=== PATIENT | male | born 1950 | race Caucasian/White ===

== ENCOUNTER → 2018-05-01 09:13 | Outpatient (CLI) | payer MEDICARE, OTHER, SELFPAY ==
--- NOTE | 2018-05-01 09:19 | DI.MRI.S_ITS ---
PROCEDURE: MR BRAIN (IAC) WWO CON INDICATIONS: HEARING LOSS TECHNIQUE: Noncontrast sagittal T1 spin echo, axial FLAIR, axial gradient echo, axial diffusion and ADC through the brain. Axial thin-slice 3D CISS, coronal TruFISP, axial T1 spin echo with fat saturation through the internal auditory canals. After the administration of contrast, thin slice axial and coronal T1 spin echo with fat saturation through the internal auditory canals, and axial T1 spin echo with fat saturation through the brain. COMPARISON: None. FINDINGS: Image quality: Excellent. Cerebellopontine angles: No cerebellopontine angle masses. Inner ear structures appear normally formed. No suspicious enhancement in the internal auditory canal or along the course of the 7th cranial nerve. CSF spaces: Ventricles are normal in size and shape. No extra-axial fluid collections. Basal cisterns are patent. Brain: No intracranial bleeds or mass effects. Wood-white matter interface is intact. There is mild, diffuse cerebral volume loss. No abnormal intracranial enhancement. Diffusion weighted images demonstrate no acute ischemic insults. Brainstem appears normal. Normal intravascular flow voids are present. Skull and face: Calvarial marrow signal is normal. Orbits appear normal. Sinuses: Sinuses and mastoids are clear. IMPRESSION: 1. No evidence of vestibular schwannoma. 2. No acute intracranial disease process. Dictated by: Beatris Rush MD, PhD on 05/01/2018 at 17:08 Approved by: Beatris Rush MD, PhD on 05/01/2018 at 17:11
[2018-05-01 09:49] LABS: Estimated Glomerular Filt Rate > 60.0 mL/min (>60)
== END ==
PROVIDERS: Visit Provider Otolaryngology
DX: H90.5 Unspecified sensorineural hearing loss (principal); H93.13 Tinnitus, bilateral
CPT/HCPCS: 36415; 70553; 82565; 84295

== ENCOUNTER 2020-07-22 22:36 | Emergency (ER) | payer MEDICARE, OTHER, SELFPAY ==
[2020-07-22 22:47] VITALS: BP 141/73; PULSE 93; RESP 20; TEMP 37.9; O2SAT 98
--- NOTE | 2020-07-22 22:47 | DI.RAD.S_ITS ---
PROCEDURE: XR CHEST 1V INDICATIONS: Fever and shortness of breath TECHNIQUE: One view of the chest was acquired. COMPARISON: None. FINDINGS: Surgical changes and devices: None. Lungs and pleura: Lungs are clear. No pleural effusions or pneumothorax. Mediastinum: Mediastinal contours appear normal. Heart size is normal. Bones and chest wall: No suspicious bony lesions. Overlying soft tissues appear unremarkable. IMPRESSION: No acute disease. Dictated by: Lefty Zamorano M.D. on 07/23/2020 at 8:22 Approved by: Lefty Zamorano M.D. on 07/23/2020 at 8:25
[2020-07-22 23:13] LABS: COVID19 -Nasal RAPID Negative (Negative)
--- NOTE | 2020-07-22 23:28 | ED_ITS ---
HPI - General Adult General Chief complaint: Upper Respiratory Symptoms Stated complaint: lost sense of taste on monday Time Seen by Provider: 07/22/20 22:43 Source: patient Mode of arrival: Ambulatory Limitations: no limitations History of Present Illness HPI narrative: 69-year-old male here for the evaluation of loss of sense of taste and also right rib pain. Patient states that approximately 10 days ago he was elk hunting and tripped over a long landing on his right side. He did not hit his head. There was no loss of consciousness. Since that time he has had some discomfort on the right side of his ribs but no problems breathing. He is also here for approximately 3 days of a loss of sense of taste. He does work in a retail setting however states that he maintain social distance things much as possible and also wears his mask. He denies any other known code exposures. Denies any fevers. Denies any problems breathing or coughing. No nausea or vomiting. Related Data Allergies Allergy/AdvReac Type Severity Reaction Status Date / Time hydroxyzine [From Atarax] Allergy Verified 07/22/20 22:49 Review of Systems Constitutional Constitutional: Denies fever(s) and Denies headache(s) ENT Ears, Nose, Mouth, and Throat: Denies headache(s) Comments: Loss of sense of taste Cardiovascular Cardiovascular: Denies dyspnea Respiratory Respiratory: Denies cough and Denies dyspnea Gastrointestinal Gastrointestinal: Denies nausea and Denies vomiting Integumentary/Breasts Skin/Breast: Denies rash Neurologic Neurologic: Denies behavioral changes and Denies headache(s) Psychiatric Psychiatric: Denies behavioral changes Hematologic/Lymphatic Hematologic/Lymphatic: Denies easy bleeding and Denies easy bruising Patient History Medical History Healthy adult (Acute) Social History lives independently: Yes Exam Initial Vital Signs Initial Vital Signs: Vital Signs Temperature 100.2 F H 07/22/20 22:47 Pulse Rate 93 H 07/22/20 22:47 Respiratory Rate 20 07/22/20 22:47 Blood Pressure 141/73 H 07/22/20 22:47 Pulse Oximetry 98 07/22/20 22:47 Const General: cooperative and comfortable Limitations: mental status not altered HENAR Head: normal to inspection and normocephalic Resp Effort & Inspection: normal respiratory effort Cardio Rate: regular rate Neuro General: patient alert, patient awake and patient oriented x3 Cognition: normal cognition Speech: speech normal Extrem General: normal to inspection Psych Appearance: grossly normal and well kempt Course Orders Ordered: ED Orders 07/22/20 22:47 XR chest 1V Stat 07/22/20 22:55 COVID19 -ED/INPAT/OR/L&D Stat Vital Signs Vital signs: Vital Signs - 8 hr 07/22/20 22:47 07/22/20 23:44 Temperature 100.2 F H 100.1 F H Pulse Rate 93 H 87 Respiratory Rate 20 20 Blood Pressure 141/73 H 137/71 Pulse Oximetry 98 98 Medical Decision Making Lab Data Lab results reviewed: Yes I reviewed the patient's lab results. Labs: Lab Results 07/22/20 Range/Units 22:55 COVID-19 PCR Negative (Negative) Imaging Data Chest x-ray: Attestation: I personally reviewed and interpreted this imaging study as follows: My Impression: No pneumonia, no pneumothorax, no obvious rib fractures MDM Narrative Medical decision making narrative: Patient without respiratory distress. Chest x-ray is unremarkable. Not hypoxic. His COVID-19 test is positive. Had a long discussion with him regarding this. In his only min 2-3 days since he lost his sense of taste. This is a known symptom of COVID-19. We did discuss that potentially today's testing his too early in the course of his symptoms/infection rim to pop positive. Did inform him that his still having symptoms at 7-10 days that he should consider getting retested. He was informed to self quarantine until his symptoms have resolved. No indication for antibiotics. We can hold on further workup for now. He expressed understanding and agreement. Discharge Plan Departure Patient Disposition: Home Clinical Impression: Rib pain, Loss of perception for taste Discharge Date/Time: 07/22/20 23:45 Instructions: Coronavirus Disease 2019 Activity Restrictions/Additional Instructions: The loss of taste is certainly a known symptom of coronavirus. You did test negative today however like we discussed the medical community is unsure as to how long it will take between and exposure and having a positive test. I do recommend that you self quarantine until your symptoms have resolved. I also r ecommend that if you have not had a resolution of her symptoms in the next couple days that you do get retested. You can contact our respiratory Clinic for this. Return to the emergency department for any new or worsening symptoms
[2020-07-22 23:44] VITALS: BP 137/71; PULSE 87; RESP 20; TEMP 37.8; O2SAT 98
== END 2020-07-22 23:45 | disposition home or self-care (01) ==
PROVIDERS: Emergency Provider Emergency Medicine
DX: U07.1 COVID-19 (principal); R07.81 Pleurodynia; W19.XXXA Unspecified fall, initial encounter; R48.1 Agnosia; R50.9 Fever, unspecified; R06.02 Shortness of breath
CPT/HCPCS: 71045; 87635; 99281; 99283

== ENCOUNTER 2022-03-08 11:48 | Emergency (ER) | payer MEDICARE, OTHER, SELFPAY ==
[2022-03-08] VITALS (10 sets, daily range): BP systolic 108–143; BP diastolic 65–78; PULSE 63–79; RESP 16–18; TEMP 36.6; O2SAT 97–100; BMI 23.0
[2022-03-08 12:56] LABS: Bacteria Urine Few (2-10); Culture Indicated Urine Specimen Cultured; RBC Urine 1-5/HPF (0-5/HPF); WBC Urine 5-10/HPF (0-5/HPF)
[2022-03-08 14:08] LABS: Add Manual Diff / Slide Review NO; Basophils Absolute Auto 0 /uL (0-100); Basophils Percent Auto 0.6 % (0-2); Eosinophils Absolute Auto 0 /uL (0-450); Eosinophils Percent Auto 0.5 % (2-4); Hematocrit 41.3 % (41-53); Hemoglobin 14.1 g/dL (13.5-17.5); Lymphocytes Absolute Auto 1100 /uL (1100-4500); Lymphocytes Percent Auto 15.1 % (25-40); Mean Corpuscular HGB Conc 34.2 % (30-36); Mean Corpuscular Hemoglobin 30.2 PG (26-34); Mean Corpuscular Volume 88.2 fL (80-100); Monocytes Absolute Auto 600 /uL (0-900); Monocytes Percent Auto 7.8 % (3-14); Neutrophils Absolute Auto 5700 /uL (1500-7000); Platelet Count 200 X10^3/uL (150-400); Red Blood Cell Count 4.68 X10^6/uL (4.5-5.9); Red Cell Distribution Width 13.7 % (11.6-14.8); White Blood Cell Count 7.5 X10^3/uL (4.5-11.0)
[2022-03-08 14:23] LABS: Alanine Aminotransferase 18 IU/L (<50); Albumin 4.2 g/dL (3.5-5.0); Albumin Globulin Ratio 1.6 (1.0-2.8); Alkaline Phosphatase 70 U/L (38-126); Aspartate Aminotransferase 25 IU/L (17-59); BUN Creatinine Ratio 17.6 (6-22); Bilirubin Total 0.9 mg/dL (0.2-1.3); Blood Urea Nitrogen 16 mg/dL (9-20); Calcium 9.3 mg/dL (8.4-10.2); Carbon Dioxide 28 mmol/L (22-32); Chloride 105 mmol/L (98-107); Estimated Glomerular Filt Rate > 60 mL/min (>60); Globulin 2.7 g/dL (1.7-4.1); Glucose 118 mg/dL (80-110); HEMOLYSIS < 15 (0-50); Lipase 43 U/L (23-300); Potassium 4.4 mmol/L (3.4-5.1); Sodium 138 mmol/L (137-145); Total Protein 6.9 g/dL (6.3-8.2)
--- NOTE | 2022-03-08 15:36 | ED_ITS ---
HPI - Abdominal Pain General Chief Complaint: Abdominal Pain Stated Complaint: Severe ABD pain lower left Time Seen by Provider: 03/08/22 15:35 Source: patient Mode of arrival: Ambulatory History of Present Illness HPI narrative: 71M nonsmoker with nonsignificant medical history presents with his son in the chief complaint of gradually worsening episodes of left lower quadrant pain with some radiation around his left side. He states the symptoms came on rather suddenly and largely have no obvious provocation or palliation. He has had a few episodes of nausea and vomiting which seem to be related to increased intensity in pain. He denies dizziness, weakness or lightheadedness. He denies any fever or chills. He denies chest pain or shortness of breath. He has no change in bowel habits such as constipation or diarrhea. He denies any obvious dysuria, frequency or urgency Related Data Previous Rx's Medication Instructions Recorded cephalexin 500 mg capsule 500 mg PO BID 7 Days #14 cap 03/08/22 hydrocodone 5 mg-acetaminophen 325 1 tab PO Q4-6H PRN #10 tab 03/08/22 mg tablet ketorolac 10 mg tablet 10 mg PO Q6H PRN #14 tab 03/08/22 ondansetron 4 mg disintegrating 4 mg PO TID-QID PRN #10 tab 03/08/22 tablet tamsulosin 0.4 mg capsule (Flomax) 0.4 mg PO DAILY #30 cap 03/08/22 Allergies Allergy/AdvReac Type Severity Reaction Status Date / Time hydroxyzine [From Atarax] Allergy Verified 03/08/22 12:22 Review of Systems Review of Systems Narrative: GENERAL: Denies chills, fatigue, malaise, fever, sweats. HEENT: Denies sinus pain, ear pain, sore throat, difficulty swallowing, dizziness. RESPIRATORY: Denies dyspnea, cough, wheezing, hemoptysis, sputum. CARDIOVASCULAR: Denies chest pain, palpitations, orthopnea, edema, GASTROINTESTINAL: See HPI : Denies dysuria, frequency, incontinence, hematuria, urinary retention. MUSCULOSKELETAL: See HPI SKIN: Denies rash, skin lesions, or other NEUROLOGIC: Denies weakness, headache, numbness, change in speech, confusion, seizures, incoordination. PSYCHIATRIC: No concerning psychosocial issues. 12 point review of systems is negative except for those stated above Patient History Medical History Healthy adult Social History lives independently: Yes Smoking Status: Unknown if ever smoked Smoking Status: Unknown if ever smoked alcohol intake frequency: holidays/special occasions only Substance Use Type: does not use Exam Narrative Exam Narrative: GENERAL: [71] year old patient appears stated age. Well-developed patient, in no obvious distress HEAD: Atraumatic. Normocephalic. EYES: Pupils equal round and reactive. Extraocular motions intact. No scleral icterus. No injection or drainage. ENT: Nose without bleeding, purulent drainage. Throat without erythema, tonsillar hypertrophy or exudate. Airway patent. NECK: Trachea midline. Non tender CARDIOVASCULAR: Regular rate and rhythm without murmurs, gallops, or rubs. RESPIRATORY: Clear to auscultation. Breath sounds equal bilaterally. No wheezes, rales, or rhonchi. GASTROINTESTINAL: Abdomen soft, minimal left lower quadrant tenderness, nondistended. EXTREMITIES: No edema or joint tenderness. BACK: Nontender without deformity or crepitance. Left flank tender to palpate NEURO: AOx3. SKIN: No rash or erythema of visible areas Initial Vital Signs Initial Vital Signs: Vital Signs Temperature 97.8 F 03/08/22 12:22 Pulse Rate 75 03/08/22 12:22 Respiratory Rate 16 03/08/22 12:22 Blood Pressure 143/78 H 03/08/22 12:22 Pulse Oximetry 99 03/08/22 12:22 Course Orders Ordered: Discontinued Medications Ceftriaxone Sodium 2,000 mg/ (Sodium Chloride) 100 mls @ 200 mls/hr IV NOW ONE Stop: 03/08/22 18:14 Last Infusion: 03/08/22 19:05 Dose: 0 mls/hr Documented by: Admin: 03/08/22 18:22 Dose: 200 mls/hr Documented by: NRHOADS Consultations Consultation #1: Discussed with on-call Urology, given elevated leukocytes and mild elevation and wbc's in urine. Given lack of fever, UTI symptoms, or elevated white blood cell count Dr Suh (urology ) suggest this is most likely an inflammatory response due to the passage of a kidney stone as opposed to UTI in the presence of a kidney stone. He recommends typical kidney stone treatment, plus or minus antibiotics with strict return precautions and close follow-up Vital Signs Vital signs: Vital Signs - 8 hr 03/08/22 12:22 03/08/22 15:28 03/08/22 16:42 Temperature 97.8 F Pulse Rate 75 79 69 Respiratory Rate 16 18 Blood Pressure 143/78 H 112/73 Pulse Oximetry 99 98 99 03/08/22 16:46 Temperature Pulse Rate 69 Respiratory Rate Blood Pressure 125/76 Pulse Oximetry 99 MDM - Abdominal Pain Lab Data Result diagrams: 03/08/22 14:00 03/08/22 14:00 Labs: Lab Results 03/08/22 03/08/22 03/08/22 Range/Units 12:45 14:00 14:00 WBC 7.5 (4.5-11.0) X10^3/uL RBC 4.68 (4.5-5.9) X10^6/uL Hgb 14.1 (13.5-17.5) g/dL Hct 41.3 (41-53) % MCV 88.2 (80-100) fL MCH 30.2 (26-34) PG MCHC 34.2 (30-36) % RDW 13.7 (11.6-14.8) % Plt Count 200 (150-400) X10^3/uL Neut % (Auto) 76.0 H (50-75) % Lymph % (Auto) 15.1 L (25-40) % [place]ole % (Auto) 7.8 (3-14) % Eos % (Auto) 0.5 L (2-4) % Baso % (Auto) 0.6 (0-2) % Neut # (Auto) 5700 (1832-9156) /uL Lymph # (Auto) 1100 (8673-9992) /uL [place]ole # (Auto) 600 (0-900) /uL Eos # (Auto) 0 (0-450) /uL Baso # (Auto) 0 (0-100) /uL Sodium 138 (137-145) mmol/L Potassium 4.4 (3.4-5.1) mmol/L Chloride 105 (98-107) mmol/L Carbon Dioxide 28 (22-32) mmol/L BUN 16 (9-20) mg/dL Creatinine 0.91 (0.66-1.25) mg/dL Estimated GFR > 60 (>60) mL/min BUN/Creatinine Ratio 17.6 (6-22) Glucose 118 H (80-110) mg/dL Calcium 9.3 (8.4-10.2) mg/dL Total Bilirubin 0.9 (0.2-1.3) mg/dL AST 25 (17-59) IU/L ALT 18 (<50) IU/L Alkaline Phosphatase 70 (38-126) U/L Total Protein 6.9 (6.3-8.2) g/dL Albumin 4.2 (3.5-5.0) g/dL Globulin 2.7 (1.7-4.1) g/dL Albumin/Globulin Ratio 1.6 (1.0-2.8) Lipase 43 (23-300) U/L Urine RBC 1-5/hpf (0-5/HPF) Urine WBC 5-10/hpf H (0-5/HPF) Urine Bacteria Few (2-10) H (None) Ur Culture Indicated? Specimen cultured Point of care testing: Urine Dip Bedside Urine Glucose Negative Bedside Urine Bilirubin - Negative Bedside Urine Ketone +/- 5 Urine Specific [place] 1.025 Bedside Urine Occult Blood +/- Bedside Urine pH 6.0 Bedside Urine Protein +/- 15 Bedside Urine Urobilinogen 0.2 Bedside Urine Nitrite - Negative Bedside Urine Leukocytes ++ 125 Esterase Imaging Data Renal US: Radiologist's Impression: [place] [address] Ultrasound Report Signed Patient: Morales Page MR#: [id number] : 1950 Acct:[id number] Age/Sex: 71 / M Date of Service: 03/08/22 Loc: ED Accession Number: [id number] ?? Procedure: US renal complete Ordering Provider: Trent Lemus D.O. PROCEDURE:? US RENAL COMPLETE ? INDICATIONS:? SEVERE LEFT LOWER QUADRANT AND LEFT FLANK PAIN ? TECHNIQUE:? Real-time scanning was performed of the kidneys and bladder, with image documentation.? ? COMPARISON:? None. ? FINDINGS:? ? Kidneys:? Kidneys are normal in size.? Right kidney measures 11.5 cm long; left kidney measures 12.8 long.? Right renal cortical thickness is 1.6 cm; left renal cortical thickness is 1.6 cm.? Renal cortical echotexture is normal.? 9 and 6 millimeter nonobstructing stones noted in the right kidney.? No right-sided hydronephrosis Numerous small stones noted in the left kidney.? Largest left renal stone measures 3 millimeters.? Mild left-sided hydronephrosis.? No suspicious solid mass lesions.? ? Bladder:? Pre-void bladder volume is 88 mL.? Post-void residual is 0 mL.? Mobile debris noted in the dependent portion of the urinary bladder.? On pre-void images, neither the right nor the left ureteral jets are noted with color Doppler interrogation.? (Of note, ureteral jets may not be detectable in up to 25% of cases due to insufficient differences in specific gravity between ureteral and bladder urine).? ? Miscellaneous:? No free pelvic fluid.? IMPRESSION:? ? 1. Bilateral renal stones. ? 2. Mild left-sided hydronephrosis.? ? 3. Mobile debris in the urinary bladder most compatible with proteinaceous material.? Finding could be secondary to infection or hemorrhage.? Recommend correlation with urinalysis data. ? ? ? Dictated by: Beatris Rush MD, PhD on 03/08/2022 at 16:49 ? ? Approved by: Beatris Rush MD, PhD on 03/08/2022 at 16:52 ? CT scan - abdomen/pelvis: Radiologist's Impression: [place] [address] CT Scan Report Signed Patient: Morales Page MR#: [id number] : 1950 Acct:[id number] Age/Sex: 71 / M Date of Service: 03/08/22 Loc: ED Accession Number: [id number] ?? Procedure: CT kidney ureter bladder (KUB) Ordering Provider: Trent Lemus D.O. PROCEDURE:? CT KIDNEY URETER BLADDER (KUB) ? INDICATIONS:? severe LLQ pain, septic stone? ? TECHNIQUE:? Axial sections were acquired from the lung bases to the pubic symphysis.? Coronal and sagittal reformats were performed.? For radiation dose reduction, the following was used: ?automated exposure control, adjustment of mA and/or kV according to patient size.? ? COMPARISON:? [facility], , RENAL COMPLETE, 03/08/2022, 17:03. ? FINDINGS:? Image quality:? Excellent.? ? Lung bases:? Calcified pleural plaque noted in the right lung base. Heart:? No significant findings. ? URINARY: Right Kidney:? 9 millimeter and 2 millimeter nonobstructing right renal stones. Right Ureter:? No hydroureter.? ? Left Kidney:? 4 millimeters stone noted in the distal left ureter causing mild to moderate left-sided hydroureteronephrosis.? Left Ureter:? Mild hydroureter. ? Bladder:? Normal wall thickness. No stones. ? ? ? ABDOMEN: Liver:? Unremarkable.? ? Gallbladder:? Unremarkable.? ? Biliary ducts:? Unremarkable.? ? Pancreas:? Unremarkable.? ? Spleen:? Unremarkable.? ? Adrenal Glands:? Unremarkable.? ? ? Stomach and Bowel:? Stomach, small bowel loops, and colon are unremarkable.? ? Peritoneum:? No abnormal intraperitoneal fluid.? No free air.? ? Ventral Wall: ? No hernia.? Abdominal Nodes:? No enlarged retroperitoneal or mesenteric lymph nodes.? Vessels:? Aorta and inferior vena cava are normal in size. Scattered atherosclerotic calcifications involving the abdominal and pelvic vasculature.? ? PELVIS: Pelvic Organs:? Unremarkable.? ? Pelvic Nodes: Unremarkable. Miscellaneous: No inguinal hernias are seen. ? ? ? Bones:? Spine degenerative disc disease and facet arthropathy. ? ? IMPRESSION: ? 4 millimeter distal left ureteral stone causing [id number] left-sided hydronephrosis. ? ? ? Dictated by: Beatris Rush MD, PhD on 03/08/2022 at 17:54 ? ? Approved by: Beatris Rush MD, PhD on 03/08/2022 at 17:59? Abdominal x-ray: Radiologist's Impression: [place] [address] XRay Report Signed Patient: Morales Page MR#: [id number] : 1950 Acct:[id number] Age/Sex: 71 / M Date of Service: 03/08/22 Loc: ED Accession Number: [id number] ?? Procedure: XR acute abdomen series Ordering Provider: Trent Lemus D.O. PROCEDURE:? XR ACUTE ABDOMEN SERIES ? INDICATIONS:? episodic abdominal pain with vomiting ? TECHNIQUE:? One view chest and two views of the abdomen were acquired.? ? COMPARISON:? None. ? FINDINGS:? ? Surgical changes and devices:? None.? ? Chest:? Lungs are clear.? Heart size is normal.? No pleural effusions.? No pneumoperitoneum.? Mild aortic atherosclerotic calcifications. ? Abdomen:? Bowel gas pattern is normal.? No suspicious calcifications.? Visualized solid organ contours appear normal.? ? Bones:? No suspicious bony lesions.? Degenerative changes are noted in the included portions of the spine. ? IMPRESSION:? Nonobstructive bowel gas pattern.? No pneumoperitoneum. ? ? Dictated by: Abelino Lewis M.D. on 03/08/2022 at 16:41 ? ? Approved by: Abelino Lewis M.D. on 03/08/2022 at 16:42 ? MDM Narrative Medical decision making narrative: Patient with colicky left groin and flank pain in the absence of any symptoms over the duration of his visit. He has no signs of sepsis, pain is well controlled, he is tolerating orals. There is subtle if any sign infection, discussed with urology who recommend typical kidney stone therapy. No change in renal function. Pain well controlled. Patient given extensive return precautions and questions answered to his apparent satisfaction Discharge Plan Departure Patient Disposition: Home Clinical Impression: Kidney stone on left side Instructions: DI for Kidney Stones Activity Restrictions/Additional Instructions: *You have been diagnosed with [4 mm kidney stone on the left side *What to do: *Please continue to take your regular medications as directed. [x ] New medication prescriptions sent to your pharmacy: [ [facility]] [ ] New medication written as a paper prescription [ ] No new medications given *Please follow up with your primary care provider in 2-3 days, call for an appointment. Let them know you were seen in the Emergency Department and that we ask that you be seen in follow up. We will electronically transmit a record of today's note if your PCP is in our system *If you do not have a primary care provider please contact the [facility] Resource line at [phone]. They will ask some questions about your medical history and help get you set up with a doctor in the community. *Return to Emergency Department if you should have any new, worsening or concerning symptoms, such as [fever greater than 101 F, shaking chills, worsening pain, persistent vomiting or other bothersome symptoms] Prescriptions: New cephalexin 500 mg capsule 500 mg PO BID 7 Days Qty: 14 0RF hydrocodone-acetaminophen 5-325 mg tablet 1 tab PO Q4-6H PRN (Reason: pain) Qty: 10 0RF ondansetron 4 mg tablet,disintegrating 4 mg PO TID-QID PRN (Reason: nausea and vomiting) Qty: 10 0RF ketorolac 10 mg tablet 10 mg PO Q6H PRN (Reason: pain) Qty: 14 0RF tamsulosin [Flomax] 0.4 mg capsule 0.4 mg PO DAILY Qty: 30 0RF Referrals: Malik Camarena MD [Physician] -
--- NOTE | 2022-03-08 15:49 | DI.RAD.S_ITS ---
PROCEDURE: XR ACUTE ABDOMEN SERIES INDICATIONS: episodic abdominal pain with vomiting TECHNIQUE: One view chest and two views of the abdomen were acquired. COMPARISON: None. FINDINGS: Surgical changes and devices: None. Chest: Lungs are clear. Heart size is normal. No pleural effusions. No pneumoperitoneum. Mild aortic atherosclerotic calcifications. Abdomen: Bowel gas pattern is normal. No suspicious calcifications. Visualized solid organ contours appear normal. Bones: No suspicious bony lesions. Degenerative changes are noted in the included portions of the spine. IMPRESSION: Nonobstructive bowel gas pattern. No pneumoperitoneum. Dictated by: Abelino Lewis M.D. on 03/08/2022 at 16:41 Approved by: Abelino Lewis M.D. on 03/08/2022 at 16:42
--- NOTE | 2022-03-08 15:49 | DI.US.S_ITS ---
PROCEDURE: US RENAL COMPLETE INDICATIONS: SEVERE LEFT LOWER QUADRANT AND LEFT FLANK PAIN TECHNIQUE: Real-time scanning was performed of the kidneys and bladder, with image documentation. COMPARISON: None. FINDINGS: Kidneys: Kidneys are normal in size. Right kidney measures 11.5 cm long; left kidney measures 12.8 long. Right renal cortical thickness is 1.6 cm; left renal cortical thickness is 1.6 cm. Renal cortical echotexture is normal. 9 and 6 millimeter nonobstructing stones noted in the right kidney. No right-sided hydronephrosis Numerous small stones noted in the left kidney. Largest left renal stone measures 3 millimeters. Mild left-sided hydronephrosis. No suspicious solid mass lesions. Bladder: Pre-void bladder volume is 88 mL. Post-void residual is 0 mL. Mobile debris noted in the dependent portion of the urinary bladder. On pre-void images, neither the right nor the left ureteral jets are noted with color Doppler interrogation. (Of note, ureteral jets may not be detectable in up to 25% of cases due to insufficient differences in specific gravity between ureteral and bladder urine). Miscellaneous: No free pelvic fluid. IMPRESSION: 1. Bilateral renal stones. 2. Mild left-sided hydronephrosis. 3. Mobile debris in the urinary bladder most compatible with proteinaceous material. Finding could be secondary to infection or hemorrhage. Recommend correlation with urinalysis data. Dictated by: Beatris Rush MD, PhD on 03/08/2022 at 16:49 Approved by: Beatris Rush MD, PhD on 03/08/2022 at 16:52
--- NOTE | 2022-03-08 17:32 | DI.CT.S_ITS ---
PROCEDURE: CT KIDNEY URETER BLADDER (KUB) INDICATIONS: severe LLQ pain, septic stone? TECHNIQUE: Axial sections were acquired from the lung bases to the pubic symphysis. Coronal and sagittal reformats were performed. For radiation dose reduction, the following was used: automated exposure control, adjustment of mA and/or kV according to patient size. COMPARISON: [facility], , RENAL COMPLETE, 03/08/2022, 17:03. FINDINGS: Image quality: Excellent. Lung bases: Calcified pleural plaque noted in the right lung base. Heart: No significant findings. URINARY: Right Kidney: 9 millimeter and 2 millimeter nonobstructing right renal stones. Right Ureter: No hydroureter. Left Kidney: 4 millimeters stone noted in the distal left ureter causing mild to moderate left-sided hydroureteronephrosis. Left Ureter: Mild hydroureter. Bladder: Normal wall thickness. No stones. ABDOMEN: Liver: Unremarkable. Gallbladder: Unremarkable. Biliary ducts: Unremarkable. Pancreas: Unremarkable. Spleen: Unremarkable. Adrenal Glands: Unremarkable. Stomach and Bowel: Stomach, small bowel loops, and colon are unremarkable. Peritoneum: No abnormal intraperitoneal fluid. No free air. Ventral Wall: No hernia. Abdominal Nodes: No enlarged retroperitoneal or mesenteric lymph nodes. Vessels: Aorta and inferior vena cava are normal in size. Scattered atherosclerotic calcifications involving the abdominal and pelvic vasculature. PELVIS: Pelvic Organs: Unremarkable. Pelvic Nodes: Unremarkable. Miscellaneous: No inguinal hernias are seen. Bones: Spine degenerative disc disease and facet arthropathy. IMPRESSION: 4 millimeter distal left ureteral stone causing [id number] left-sided hydronephrosis. Dictated by: Beatris Rush MD, PhD on 03/08/2022 at 17:54 Approved by: Beatris Rush MD, PhD on 03/08/2022 at 17:59
[2022-03-08] MEDS: cefTRIAXone 2,000 MG in SODIUM CHLORIDE 0.9% 100 ML 200 MG IV (18:22)
== END 2022-03-08 19:06 | disposition home or self-care (01) ==
PROVIDERS: Emergency Provider Emergency Medicine
DX: N20.0 Calculus of kidney (principal)
CPT/HCPCS: 36415; 74022; 74176; 76770; 80053; 81003; 81015; 83690; 85025; 87086; 93005; 96365; 99284; J0696